=== PATIENT | male | born 1960 | race Two or more races ===

== ENCOUNTER → 2024-10-20 | Outpatient (CLI) | payer MEDICAID, SELFPAY ==
--- NOTE | 2024-10-20 16:38 | XR_ITS ---
Examination: CT brain head without contrast. 2-D sagittal coronal reconstructions Date and time of exam:October 20, 2024 at 1710 hours INDICATIONS: Dizziness episodes beginning 3 months ago CTDI: vol (mGy):47 DLP: (mGycm):924 Technique: Multiple CT axial sections of the brain have been obtained, 5 mm slice thickness. Contrast has not been administered. 2-D sagittal, coronal reconstructions have been obtained Low dose protocols were performed. One or more of the following dose reduction techniques were used; automated exposure control, adjustment of the mA and/or KV according to patient size, use of iterative reconstruction technique. Findings: No significant ventricular enlargement. Intra-axial or extra-axial hemorrhage density is not seen. No mass effect or midline shift Basal cisterns are not remarkable. Fourth ventricle is midline. Cranial vault intact. Impression: Negative for acute hemorrhage, mass effect or midline shift If symptoms persist, consider brain MRI follow-up, stroke protocol
== END | disposition home or self-care (01) ==
PROVIDERS: PCP Physician Assistant; Referring Provider Physician Assistant; Visit Provider Physician Assistant
DX: R42 Dizziness and giddiness (principal)
CPT/HCPCS: 70450

== ENCOUNTER → 2025-03-10 | Outpatient (CLI) | payer MEDICAID, SELFPAY ==
--- NOTE | 2025-03-10 | XR_ITS ---
Examination: Wrist, left 3 views Technique: Wrist AP, oblique, lateral 3 views Date and time of exam: March 10, 2025 1209 hours INDICATIONS: Injury to the hand changing a tire 3 months ago, wrist pain FINDINGS: Severe osteopenia Moderate narrowing radiocarpal intercarpal carpometacarpal joints Soft tissue vascular calcification No fracture or dislocation IMPRESSION: No fracture or dislocation
--- NOTE | 2025-03-10 16:07 | XR_ITS ---
Examination: Hand, left 3 views Technique: Hand AP, oblique, lateral 3 views Date and time of exam: March 10, 2025, 1629 hrs. Indications: Car fell on the patient's left hand while changing a tire 3 months ago with persistent hand pain. Findings: Significant osteopenia Mild to moderate diffuse narrowing joints of the wrist and hand Fracture involving the midportion proximal phalanx second digit with 1 mm displaced bone fragment in the soft tissue at the level of the distal aspect proximal phalanx with prominent soft tissue swelling No dislocation Impression: Fracture midportion proximal phalanx second digit with displaced 1 mm bone fragment and prominent soft tissue swelling at this site, recommend ultrasound soft tissue second digit to exclude abscess
== END | disposition home or self-care (01) ==
PROVIDERS: PCP Physician Assistant; Referring Provider Nurse Practitioner Gerontology; Visit Provider Nurse Practitioner Gerontology
DX: S62.621A Displaced fracture of middle phalanx of left index finger, initial encounter for closed fracture (principal); W23.0XXA Caught, crushed, jammed, or pinched between moving objects, initial encounter
CPT/HCPCS: 73110; 73130

== ENCOUNTER → 2025-03-16 | Outpatient (CLI) | payer MEDICAID, SELFPAY ==
--- NOTE | 2025-03-16 09:30 | ECHO_ITS ---
Transthoracic Echo Report Ht (in): 71 Wt (lb): 180 Exam Location: Echo Lab Status: Preadmit Signwriter: Kadi Hodgson Indications: Procedure Performed: BP: 141 / 83 HR: 59 MEASUREMENTS (Male / Female) Normal Values 2D ECHO LV Diastolic Diameter PLAX 4.7 cm 4.2 - 5.9 / 3.9 - 5.3 cm LV Systolic Diameter PLAX 3.1 cm IVS Diastolic Thickness 0.9 cm 0.6 - 1.0 / 0.6 - 0.9 cm LVPW Diastolic Thickness 1.1 cm 0.6 - 1.0 / 0.6 - 0.9 cm LV Relative Wall Thickness 0.4 LVOT Diameter 2.0 cm LA Volume Index 26.4 cm?/m? 16 - 28 cm?/m? Ascending Aorta Diameter 3.3 cm M-MODE AV Cusp Separation MM 1.3 cm DOPPLER AV Peak Velocity 92.5 cm/s AV Peak Gradient 3.4 mmHg AV Mean Gradient 2.0 mmHg AV Velocity Time Integral 22.2 cm LVOT Peak Velocity 75.7 cm/s LVOT Peak Gradient 2.3 mmHg LVOT Velocity Time Integral 18.6 cm LVOT Cardiac Index 1698.2 cm?/min?m? AV Area Cont Eq vti 2.6 cm? AV Area Cont Eq pk 2.6 cm? MV Area PHT 3.4 cm? Mitral E Point Velocity 79.9 cm/s Mitral A Point Velocity 67.5 cm/s Mitral E to A Ratio 1.2 LV E' Lateral Velocity 10.6 cm/s Mitral E to LV E' Lateral Ratio 7.5 LV E' Septal Velocity 7.1 cm/s Mitral E to LV E' Septal Ratio 11.3 TR Peak Velocity 95.0 cm/s TR Peak Gradient 3.6 mmHg PV Peak Velocity 80.1 cm/s PV Peak Gradient 2.6 mmHg FINDINGS Left Ventricle Normal left ventricular size, wall thickness, systolic function with no obvious regional wall motion abnormalities. Normal left ventricular diastolic filling pattern for age. The ejection fraction is visually estimated at 50-55 %. Right Ventricle The right ventricle is normal in size and systolic function. Left Atrium The left atrium is normal by two-dimensional, color flow and Doppler imaging with no structural abnormalities, no thrombus formation present. Right Atrium The right atrium is normal by two-dimensional imaging, color flow and Doppler imaging with no structural abnormalities, no thrombus formation present. Atrial Septum The interatrial septum appears normal with no evidence of a shunt. Aorta The aorta is normal by two-dimensional, color flow and Doppler interrogation. Mitral Valve The mitral valve is normal by two-dimensional, color flow and Doppler interrogation. Trace mitral regurgitation. Aortic Valve The aortic valve is trileaflet and normal by two-dimensional, color flow and Doppler interrogation. There is no significant aortic valve regurgitation. Tricuspid Valve The tricuspid valve is normal by two-dimensional, color flow and Doppler interrogation. There is trace tricuspid valve regurgitation. Pulmonic Valve The pulmonic valve is not well visualized. There is no significant pulmonic valve regurgitation. Vessels The pulmonary artery appears normal. The inferior vena cava pulmonary and hepatic veins appear normal. Pericardium The pericardium is normal by two-dimensional imaging. There is no significant pericardial effusion. CONCLUSIONS Indication: Dizziness and giddiness Normal left ventricular size and function. Approximate ejection fraction is 55- 60%. Normal diastolic function. Normal Rv size and function. RVSP normal Trace mitral and trace tricuspid regurgitation noted. No pericardial effusion. Blas Shafer (Electronically Signed) Final Date: 16 March 2025 18:13
== END | disposition home or self-care (01) ==
LOC: SDIM 09:21
PROVIDERS: PCP Physician Assistant; Referring Provider Physician Assistant; Visit Provider Physician Assistant
DX: I08.1 Rheumatic disorders of both mitral and tricuspid valves (principal)
CPT/HCPCS: 93306